=== PATIENT | male | born 1985 | race American Indian/Alaskan Native ===

== ENCOUNTER 2018-07-15 06:41 | Emergency (ER) | payer OTHER ==
[2018-07-15] MEDS ORDERED: Albuterol-Ipratrop 3 mg / 0.5 (3 ml) UD ONE (07:03)
--- NOTE | 2018-07-15 07:34 | ED PDOC ---
HPI: SOB/CHF/COPD Time Seen by Provider: 07/15/18 07:17 Chief Complaint (Nursing): Respiratory Distress Chief Complaint (Provider): Shortness of breath History Per: Patient History/Exam Limitations: no limitations Onset/Duration Of Symptoms: Hrs Current Symptoms Are (Timing): Still Present Initiating Event: Other (weather change) Additional History Per: Patient Additional Complaint(s): 32yo male with history of asthma, comes to ER reporting acute asthma exacerbation. Patient reports he woke up feeling extremely short of breath, and had no relief with inhaler use. Patient states his symptoms are probably due to change in weather. No fever, chills, chest pain, sweats, or other complaints. Patient has no history of admissions or intubation due to asthma. PMD: Dr. Posey Past Medical History Reviewed: Historical Data, Nursing Documentation, Vital Signs Vital Signs: Last Vital Signs Temp 98.4 F 07/15/18 06:49 Pulse 80 07/15/18 07:24 Resp 18 07/15/18 07:24 BP 145/88 07/15/18 06:49 Pulse Ox 100 07/15/18 07:24 - Medical History PMH: Asthma - Surgical History Surgical History: No Surg Hx - Family History Family History: States: No Known Family Hx - Social History Current smoker - smoking cessation education provided: No Alcohol: None Drugs: Denies - Home Medications Home Medications: Ambulatory Orders Medication Instructions Recorded Peak Flow Meter/INH Assit Dev 1 each MC Q4 #1 kit 07/15/18 [Aerogear Asthma Action Kit] RX: Albuterol HFA [Ventolin HFA 90 2 puff IH [id number] #1 pump 07/15/18 mcg/actuation (8 g)] RX: predniSONE [predniSONE Tab] 40 mg PO DAILY #8 tab 07/15/18 - Allergies Allergies/Adverse Reactions: Allergies Allergy/AdvReac Type Severity Reaction Status Date / Time doxycycline Allergy ITCHING Verified 07/15/18 07:24 seafood Allergy RASH Uncoded 07/15/18 07:24 Review of Systems ROS Statement: Except As Marked, All Systems Reviewed And Found Negative Constitutional: Negative for: Fever, Chills, Sweats Cardiovascular: Negative for: Chest Pain Respiratory: Positive for: Shortness of Breath. Negative for: Cough Gastrointestinal: Negative for: Vomiting Physical Exam - Reviewed Nursing Documentation Reviewed: Yes Vital Signs Reviewed: Yes - Physical Exam Appears: Positive for: Non-toxic, Uncomfortable Head Exam: Positive for: ATRAUMATIC, NORMAL INSPECTION, NORMOCEPHALIC Skin: Positive for: Normal Color, Warm, DRY Eye Exam: Positive for: EOMI, Normal appearance, PERRL Neck: Positive for: Normal, Painless ROM Cardiovascular/Chest: Positive for: Regular Rate, Rhythm. Negative for: Murmur, Tachycardia Respiratory: Positive for: Decreased Breath Sounds, Wheezing (bilateral). Negative for: Respiratory Distress Gastrointestinal/Abdominal: Positive for: Normal Exam, Soft Back: Positive for: Normal Inspection Extremity: Positive for: Normal ROM. Negative for: Pedal Edema Neurologic/Psych: Positive for: Alert, Oriented. Negative for: Motor/Sensory Deficits - ECG O2 Sat by Pulse Oximetry: 100 (RA) Pulse Ox Interpretation: Normal Medical Decision Making Medical Decision Makinyo male with history of asthma, presents with acute asthma exacerbation Plan: -- Duoneb 3ml INH x 3 -- Prednisone 60mg PO No indication of infection noted at this time, and no need for further workup at this time. Will reconsider if symptoms not resolved. 08 On reassessment, patient reports feeling much better. Patient stable for discharge home; given prescription for prednisone and instructed to followup with PMD in 2-3 days. Scribe Attestation: Documented by Magda Campos acting as a scribe for Debbie Cullen MD Provider Attestation: All medical record entries made by the Scribe were at my direction and personally dictated by me. I have reviewed the chart and agree that the record accurately reflects my personal performance of the history, physical exam, medical decision making, and the department course for this patient. I have also personally directed, reviewed, and agree with the discharge instructions and disposition. Disposition - Clinical Impression Clinical Impression: Asthma Counseled Patient/Family Regarding: Diagnosis, Need For Followup, Rx Given - Disposition Disposition: Routine/Home Disposition Time: 08:22 Condition: IMPROVED Additional Instructions: Take Prednisone for the next 4 days. Follow up with primary medical doctor. Return to the emergency department if symptoms worsen or if new symptoms ashley burr Prescriptions: RX: Albuterol HFA [Ventolin HFA 90 mcg/actuation (8 g)] 2 puff IH [id number] #1 pump Peak Flow Meter/INH Assit Dev [Aerogear Asthma Action Kit] 1 each MC Q4 #1 kit RX: predniSONE [predniSONE Tab] 40 mg PO DAILY #8 tab Instructions: Asthma, Adult (DC), How to Use Your Metered Dose Inhaler (Adults), Asthma Action Plan Forms: [employer] (Swedish) Print Language: BELGIAN
[2018-07-15] MEDS ORDERED: Albuterol-Ipratrop 3 mg / 0.5 (3 ml) UD INH STA ×3 (07:36)
[2018-07-15 08:29] VITALS: BP 130/75; PULSE 82; RESP 16; TEMP 97.8
--- NOTE | 2018-07-15 23:53 | CARD ---
APPROVED REPORT Date of service: 07/15/2018 EKG Measurement Heart [id number] <Conclusion> Normal sinus rhythm Normal ECG
[2018-07-18 14:23] VITALS: O2SAT 100
== END 2018-07-15 08:39 | disposition home or self-care (01) ==
LOC: H.ER 06:41
DX: J45.909 Unspecified asthma, uncomplicated (principal)